=== PATIENT | male | born 1960 | race Caucasian/White ===

== ENCOUNTER 2017-02-19 17:24 | Emergency (ER) | payer BC, OTHER, SELFPAY ==
[2017-02-19] MEDS ORDERED: Ondansetron HCl/PF 4 MG/2 ML Vial ONE (17:31)
[2017-02-19] MEDS ORDERED: Adacel (T-DAP) 0.5 ML VIAL ONE (17:40)
[2017-02-19] MEDS ORDERED: ceFAZolin Sodium 1 GM VIAL ONE (17:40)
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
== END 2017-02-19 18:18 | disposition short-term general hospital (02) ==
LOC: BURERS 17:24
DX: S68.121A Partial traumatic metacarpophalangeal amputation of left index finger, initial encounter (principal); I10 Essential (primary) hypertension; Z79.899 Other long term (current) drug therapy; W45.8XXA Other foreign body or object entering through skin, initial encounter
CPT/HCPCS: 90715; J0690; J2270; J2405

== ENCOUNTER 2018-09-02 20:04 | Emergency (ER) | payer OTHER, SELFPAY ==
[2018-09-02] MEDS ORDERED: Adacel (T-DAP) 0.5 ML VIAL ONE (21:10)
[2018-09-02] MEDS ORDERED: Cephalexin 500 MG CAP ONE (21:10)
[2018-09-02] MEDS ORDERED: Bacitracin Zinc 1 Packet ONE (21:16)
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
[2018-09-02] MEDS ORDERED: traMADol HCl 50 MG TAB ONE (21:25)
[2018-09-02] MEDS ORDERED: Ibuprofen 800 MG TAB ONE (21:25)
== END 2018-09-02 21:30 | disposition home or self-care (01) ==
LOC: BURERS 20:04
DX: S02.2XXA Fracture of nasal bones, initial encounter for closed fracture (principal); S00.83XA Contusion of other part of head, initial encounter; S81.011A Laceration without foreign body, right knee, initial encounter; I10 Essential (primary) hypertension; F17.210 Nicotine dependence, cigarettes, uncomplicated; Z86.73 Personal history of transient ischemic attack (TIA), and cerebral infarction without residual deficits; W22.8XXA Striking against or struck by other objects, initial encounter
CPT/HCPCS: 12001; 70450; 70486; 90471; 90715